=== PATIENT | female | born 1970 | race Two or more races ===

== ENCOUNTER 2018-01-04 08:32 | Emergency (ER) | payer SELFPAY ==
[~2018-01-04] VITALS: Ht 157.5 cm; Wt 93.9 kg
[2018-01-04] MEDS ORDERED: ONDANSETRON ODT 4 MG ONE (09:24)
[2018-01-04] MEDS ORDERED: LOPERAMIDE 2 MG CAPSULE ONE (09:24)
[2018-01-04] MEDS ORDERED: LOPERAMIDE 2 MG CAPSULE PO ONE (09:30)
[2018-01-04] MEDS ORDERED: ONDANSETRON ODT 4 MG PO ONE (09:30)
[2018-01-04 09:42] LABS: BASOPHILS # (AUTO) 0.01 x10^3/uL (0-0.1); BASOPHILS % (AUTO) 0 % (0-1); EOSINOPHILS # (AUTO) 0.18 x10^3/uL (0-0.4); EOSINOPHILS % (AUTO) 3 % (1-7); LYMPHOCYTES # (AUTO) 1.22 x10^3/uL (1-3.4); LYMPHOCYTES % (AUTO) 23 % (22-44); MD NO; MEAN CORPUSCULAR HEMOGLOBIN 31.6 pg (27.0-34.8); MEAN CORPUSCULAR HGB CONC 34.3 g/dL (32.4-35.8); MEAN CORPUSCULAR VOLUME 92.1 fL (80-100); MONOCYTES % (AUTO) 15 % (2-9); NEUTROPHILS # (AUTO) 3.14 x10^3/uL (1.8-6.8); NEUTROPHILS % (AUTO) 59 % (42-75); PLATELET COUNT 270 x10^3/uL (130-400); RED BLOOD COUNT 3.69 x10^6/uL (3.82-5.3); RED CELL DISTRIBUTION WIDTH 12.4 % (9.6-15.2)
[2018-01-04 09:52] LABS: ALANINE AMINOTRANSFERASE 34 U/L (12-78); ALBUMIN 2.6 g/dL (3.4-5.0); ANION GAP 6 mmol/L (5-15); CALCIUM 6.7 mg/dL (8.5-10.1); CHLORIDE 107 mmol/L (98-107); CREATININE 1.52 mg/dL (0.55-1.02)
[2018-01-04 09:57] LABS: ALKALINE PHOSPHATASE 102 U/L (45-117); BILIRUBIN,TOTAL 0.4 mg/dL (0.2-1.0)
[2018-01-04] MEDS ORDERED: AZITHROMYCIN 500 MG TABLET ONE (10:56)
[2018-01-04] MEDS ORDERED: AZITHROMYCIN 500 MG TABLET PO ONE (11:00)
[2018-01-04 11:26] VITALS: BP 161/86
== END 2018-01-04 18:16 | disposition home or self-care (01) ==
LOC: ED 09:35
DX: R11.2 Nausea with vomiting, unspecified (principal); R19.7 Diarrhea, unspecified
CPT/HCPCS: 36415; 80053; 83690; 84703; 85025; 99284; Q0162

== ENCOUNTER 2019-07-19 14:17 | Emergency (ER) | payer SELFPAY ==
[~2019-07-19] VITALS: Ht 157.5 cm; Wt 88.0 kg
--- NOTE | 2019-07-19 15:15 | NUR ---
TO [facility] FROM LOBBY
--- NOTE | 2019-07-19 15:16 | NUR ---
PT WITH REPORTS OF SEEING BLACK AND RED SPOTS IN L EYE FOR THE PAST TWO HOURS, PT DENIES DUNCAN. NO OTHER NEURO DEFICITS NOTED. PT DENIES INJURY TO EYE
[2019-07-19] MEDS ORDERED: FLUORESCEIN OPHTHALMIC 1 MG STRIP ONE (15:18)
[2019-07-19] MEDS ORDERED: PROPARACAINE OPHTH 0.5%, 15ML ONE (15:19)
[2019-07-19 18:04] VITALS: BP 192/108
== END 2019-07-19 18:28 | disposition home or self-care (01) ==
LOC: ED 17:00
DX: I10 Essential (primary) hypertension (principal); E11.9 Type 2 diabetes mellitus without complications
CPT/HCPCS: 99283

== ENCOUNTER → 2020-11-17 | Outpatient (CLI) | payer OTHER ==
[2020-11-17 11:34] LABS: BASOPHILS % (AUTO) 1 % (0-1); EOSINOPHILS % (AUTO) 3 % (1-7); LYMPHOCYTES % (AUTO) 20 % (22-44); MEAN CORPUSCULAR HGB CONC 34.7 g/dL (32.4-35.8); MEAN PLATELET VOLUME 7.8 fL (7.4-10.4); MONOCYTES % (AUTO) 7 % (2-9); NEUTROPHILS % (AUTO) 70 % (42-75); PLATELET COUNT 342 x10^3/uL (130-400); RED BLOOD COUNT 3.74 x10^6/uL (3.82-5.3); RED CELL DISTRIBUTION WIDTH 12.3 % (9.6-15.2)
[2020-11-17 11:36] LABS: MICROSCOPIC AUTO
[2020-11-17 11:38] LABS: CALCIUM 8.8 mg/dL (8.5-10.1)
[2020-11-17 11:44] LABS: ALANINE AMINOTRANSFERASE 16 U/L (12-78); ANION GAP 8 mmol/L (5-15); CALCIUM 8.3 mg/dL (8.5-10.1); CHLORIDE 111 mmol/L (98-107)
[2020-11-17 11:46] LABS: ALKALINE PHOSPHATASE 108 U/L (45-117); BILIRUBIN,TOTAL 0.5 mg/dL (0.2-1.0); CREATININE 3.05 mg/dL (0.55-1.02); TOTAL PROTEIN 7.8 g/dL (6.4-8.2)
[2020-11-17 11:47] LABS: CREATININE,URINE RANDOM 69.2 mg/dL
== END | disposition home or self-care (01) ==
LOC: LAB 11:07
PROVIDERS: ATTEND Internal Medicine Nephrology
DX: E11.9 Type 2 diabetes mellitus without complications (principal); R80.9 Proteinuria, unspecified; E87.5 Hyperkalemia; N17.9 Acute kidney failure, unspecified
CPT/HCPCS: 36415; 80053; 81001; 82043; 82306; 82310; 82570; 83735; 83970; 84100; 84156; 84550; 85025; 87077; 87086; 87186

== ENCOUNTER 2020-12-08 18:55 | Emergency (ER) | payer OTHER ==
[~2020-12-08] VITALS: Ht 157.5 cm; Wt 87.9 kg
--- NOTE | 2020-12-08 20:17 | NUR ---
PT C/O OF LEG SWELLING AND ITCHING AFTER TAKING AMLODIPINE FOR A WEEK STATES SWELLING HAS GOTTEN A LOT WORSE TODAY. DENIES CP, SOB, AND HEADACHE. ATACHED TO MONITORS. VSS. SYLVIAN. BED IN LOW POSIITON, RAILS ENGAGED. CALL LIGHT WITHIN REACH. CHILDREN AT BEDSIDE. [facility]
[2020-12-08 21:10] LABS: BASOPHILS % (AUTO) 1 % (0-1); EOSINOPHILS % (AUTO) 3 % (1-7); LYMPHOCYTES % (AUTO) 17 % (22-44); MEAN CORPUSCULAR HEMOGLOBIN 32.3 pg (27.0-34.8); MEAN CORPUSCULAR HGB CONC 35.3 g/dL (32.4-35.8); MEAN PLATELET VOLUME 7.6 fL (7.4-10.4); MONOCYTES % (AUTO) 8 % (2-9); NEUTROPHILS % (AUTO) 72 % (42-75); PLATELET COUNT 361 x10^3/uL (130-400); RED BLOOD COUNT 3.32 x10^6/uL (3.82-5.3); RED CELL DISTRIBUTION WIDTH 12.3 % (9.6-15.2)
[2020-12-08 21:22] LABS: ALBUMIN 3.3 g/dL (3.4-5.0); ANION GAP 10 mmol/L (5-15); CALCIUM 8.1 mg/dL (8.5-10.1); CHLORIDE 109 mmol/L (98-107)
[2020-12-08 21:26] LABS: ALANINE AMINOTRANSFERASE 19 U/L (12-78); ALKALINE PHOSPHATASE 113 U/L (45-117); BILIRUBIN,TOTAL 0.4 mg/dL (0.2-1.0); CREATININE 3.34 mg/dL (0.55-1.02); TOTAL PROTEIN 8.2 g/dL (6.4-8.2)
--- NOTE | 2020-12-08 21:31 | NUR ---
Patient is resting comfortably in bed. Bed in lowest, rails engaged, call light on lap. Vital Signs within normal limits. [facility]CT[facility].
[2020-12-08 22:22] VITALS: BP 140/63
== END 2020-12-08 22:56 | disposition home or self-care (01) ==
LOC: ED 19:25
DX: R60.0 Localized edema (principal); I12.9 Hypertensive chronic kidney disease with stage 1 through stage 4 chronic kidney disease, or unspecified chronic kidney disease; E11.22 Type 2 diabetes mellitus with diabetic chronic kidney disease; N18.30 Chronic kidney disease, stage 3 unspecified; R21 Rash and other nonspecific skin eruption; R07.89 Other chest pain
CPT/HCPCS: 36415; 71045; 80053; 83880; 84703; 85025; 99284